=== PATIENT | female | born 1935 | race Caucasian/White ===

== ENCOUNTER 2016-07-03 15:57 | Emergency (ER) | payer MEDICARE, MEDICAID ==
[~2016-07-03] VITALS: Ht 154.9 cm; Wt 59.0 kg
[2016-07-03 16:23] VITALS: BP 156/62
--- NOTE | 2016-07-03 16:43 | Emergency Room Report ---
History of Present Illness General Chief Complaint: Multiple Trauma/Fall Source: Patient Present Illness HPI Patient is a 81-year-old female who presented after increased right-sided chest pain. Patient reported having pain for approximately one week after fall. Patient reportedly fell in a parking lot. She reported having bilateral right knee pain. patient also reported having some pain to the right side of the chest. Pain was worse with movement as well as deep breath. The pain was sharp in nature. The patient states that she's had previous rib fractures. Allergies: Coded Allergies: PENICILLINS (Verified Allergy, Unknown, 07/03/16) Patient History Now: No Reviewed Nursing Documentation: PMH: Agreed, PSxH: Agreed Nursing Documentation-PMH Past Medical History: No Stated History Review of Systems All Other Systems: negative except mentioned in HPI Physical Exam Vital Signs Date Time Temp Pulse Resp B/P Pulse Ox O2 Delivery O2 Flow Rate FiO2 07/03/16 16:06 97.3 80 18 156/62 96 Room Air General Appearance: well appearing, no apparent distress, alert, GCS 15, non- toxic Head: normocephalic, atraumatic ENT: hearing grossly normal, normal voice Neck: full range of motion, supple Respiratory: lungs clear, normal breath sounds, no respiratory distress, speaking full sentences Cardiovascular #1: normal peripheral pulses, regular rate, rhythm, no edema, no gallop Gastrointestinal: normal bowel sounds, non tender, soft, no mass Musculoskeletal: no calf tenderness, decreased range of mation, other - chest wall tenderness right side Neurologic: normal inspection, alert, oriented x3, responsive, 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 Differential diagnosis included but was not limited to acute coronary syndrome, pulmonary embolism, pneumonia, aortic dissection, shingles, pneumothorax, aortic dissection, esophageal rupture , pericarditis. CT imaging of the chest radiologist showed right-sided atelectasis versus pneumonia. Patient was given oral azithromycin. EKG interpreted by me showed normal sinus rhythm with rate of [address] or T wave changes. The patient is advised to follow up with primary care doctor in 1-2 days. Patient is advised to return if any worsening condition or if any changes in status that are concerning. Last Vital Signs Date Time Temp Pulse Resp B/P Pulse Ox O2 Delivery O2 Flow Rate FiO2 07/03/16 16:23 97.3 85 18 156/62 96 Room Air Status: improved Disposition: HOME, SELF-CARE Condition: Stable Scripts Azithromycin* (ZITHROMAX*) 250 Mg Tablet 250 MG ORAL DAILY, #4 TAB Prov: Jose Juan Vilchis 07/03/16 Jose Juan Vilchis Jul 03, 2016 16:43
[2016-07-03 17:04] VITALS: BP 146/61
[2016-07-03 17:44] VITALS: BP 142/59
[2016-07-03] MEDS ORDERED: Azithromycin 250mg tab ORAL ONE (18:30)
[2016-07-03] MEDS ORDERED: AZITHROMYCIN250 MG ORAL (18:35)
[2016-07-03 18:45] VITALS: BP 134/56
--- NOTE | 2016-07-04 10:41 | Diagnostic Imaging Report ---
EXAM: CT Chest HISTORY: Chest pain. TECHNIQUE: Serial 3.0 mm axial images were obtained from the thoracic inlet through the adrenals. Coronal and sagittal reformats were performed. COMPARISON: No prior study is available for comparison. CTDIvol 21 DLP 626 FINDINGS: Lack of intravenous contrast diminishes sensitivity of exam findings. Subsegmental opacity in the right lung base may represent atelectasis or scarring. Reticular densities in the lung bases are compatible with changes of chronic lung disease. No lobar or segmental consolidation. No pleural effusion is seen. The trachea and central airways appears patent. No pneumothorax. The heart is borderline enlarged. There is no evidence of pericardial effusion. There is no evidence of mediastinal, hilar or axillary adenopathy. The thyroid appears unremarkable. Thoracic aorta and great vessels are normal in caliber with scattered atherosclerotic disease. Visualized upper abdominal organs appear grossly normal. The visualized bony structures appear intact. IMPRESSION: Subsegmental atelectasis or scarring in the right lung base with scattered changes of chronic lung disease. No evidence of lobar or segmental pneumonia. Borderline cardiomegaly.
--- NOTE | 2016-07-27 08:14 | Cardiology Report ---
APPROVED REPORT EKG Measurement Heart [id number] OR [id number] [id number] Normal sinus rhythm Cannot rule out Anterior infarct, age undetermined Abnormal ECG
== END 2016-07-03 18:55 | disposition home or self-care (01) ==
LOC: EMR 16:50
DX: J18.9 Pneumonia, unspecified organism (principal); M25.562 Pain in left knee; M25.561 Pain in right knee; Z88.0 Allergy status to penicillin
CPT/HCPCS: 71250; 93005; 99283

== ENCOUNTER 2018-10-05 05:56 | Day surgery (SDC) | payer MEDICARE, MEDICAID ==
[2018-10-05] VITALS (11 sets, daily range): BP systolic 125–151; BP diastolic 56–86
[~2018-10-05] VITALS: Ht 154.9 cm; Wt 59.0 kg
[~2018-10-05 05:56] MED LIST: AZITHROMYCIN250 MG ORAL; BYSTOLIC2.5 MG ORAL; CRESTOR10 M2 ORAL; EDARBI80 MG ORAL; LEVOTHYROXINE75 MCG ORAL; LORAZEPAM0.5 MG ORAL; NORVASC10 MG ORAL; ZENPEP ORAL
--- NOTE | 2018-10-05 06:40 | NUR ---
IV LR WAS STARTED BY CANDICE BACK RN. NO S/S OF INFILTRATION.
[2018-10-05] MEDS ORDERED: fentaNYL 100 mcg/2 mL IV ONE (07:18)
[2018-10-05] MEDS ORDERED: cefOXitin 1gm Inj ONE (07:23)
[2018-10-05] MEDS ORDERED: Sterile Water Irrig 1000ml IRRIG ONE (08:00)
[2018-10-05] MEDS ORDERED: Propofol 200mg/20ml IV ONE (08:00)
[2018-10-05] MEDS ORDERED: LR 1000ml ONE (08:00)
[2018-10-05] MEDS ORDERED: NS Irrig 1000ml ONE (08:00)
--- NOTE | 2018-10-05 08:03 | Pre-Procedure Note/Attestation ---
Pre-Procedure Note/Attestation Complete Prior to Procedure Planned Procedure: not applicable Procedure Narrative: D&C, Hysteroscopy, Endometrial polypectomy Indications for Procedure Pre-Operative Diagnosis: Endometrial Polyps Attestation I attest that I discussed the nature of the procedure; its benefits; risks and complications; and alternatives (and the risks and benefits of such alternatives ), prior to the procedure, with the patient (or the patient's legal sales representative printing). I attest that, if there was a reasonable possibility of needing a blood transfusion, the patient (or the patient's legal sales representative printing) was given the [facility] standardized written summary, pursuant to the Ilya Maryana Blood Safety Act ([place] Health and Safety Code # 1645, as amended). I attest that I re-evaluated the patient just prior to the surgery and that there has been no change in the patient's H&P, except as documented below:NONE Jonathon Johnson MD October 05, 2018 08:03
[2018-10-05] MEDS ORDERED: LR 1000ml 1,000 ML IVLG SCH (08:21)
--- NOTE | 2018-10-05 08:21 | Anethesia Preoperative Eval ---
Anesthesia Pre-op PMH/ROS General Date of Evaluation: October 05, 2018 Time of Evaluation: 07:22 Anesthesiologist: Jass ASA Score: ASA 2 Mallampati Score Class I : Soft palate, uvula, fauces, pillars visible Class II: Soft palate, uvula, fauces visible Class III: Soft palate, base of uvula visible Class IV: Only hard plate visible Mallampati Classification: Class II Surgeon: Elizabeth Diagnosis: Endometrial polyp Surgical Procedure: D&C Hysteroscopy Anesthesia History: none Family History: no anesthesia problems Allergies: Coded Allergies: PENICILLINS (Verified Allergy, Intermediate, 10/04/18) itchy,rashes,red spot on chest TETRACYCLINE (Verified Allergy, Intermediate, 10/04/18) SKIN RASH,ITCHING,RED SPOT ON CHEST Medications: see eMAR Patient NPO?: Yes Past Medical History Cardiovascular: Reports: HTN; Denies: CAD, [place], valve dz, arrhythmia, other Pulmonary: Denies: asthma, COPD, LINA, other Gastrointestinal/Genitourinary: Reports: GERD; Denies: CRI, ESRD, other Neurologic/Psychiatric: Reports: depression/anxiety; Denies: dementia, CVA, TIA, other Endocrine: Reports: hypothyroidism HEENT: Reports: cataract (L), cataract (R); Denies: glaucoma, [employer] (L), [employer] (R), other Hematology/Immune: Denies: anemia, DVT, bleeding disorder, other Musculoskeletal/Integumentary: Reports: OA PMH Narrative: as above PSxH Narrative: Lumpectomy, Appy T@A Skin CA removal Anesthesia Pre-op Phys. Exam Physician Exam Last Vital Signs Date Time Temp Pulse Resp B/P (MAP) Pulse Ox O2 Delivery O2 Flow Rate FiO2 10/05/18 06:36 Room Air 10/05/18 06:35 97.2 60 20 131/56 96 Constitutional: NAD Neurologic: CN 2-12 intact Cardiovascular: RRR, no M/R/G Respiratory: CTA Gastrointestinal: S/NT/ND Airway Exam Mallampati Score: Class III MO: limited Neck: stiff ROM: limited Teeth: missing Dentures: no upper, no lower Anesthesia Pre-op A/P Labs see chart Studies Pre-op Studies: EKG - SR Risk Assessment & Plan Assessment: ASA 2 Plan: GA with LMA Status Change Before Surgery: No Pre-Antibiotics Drug: Cefoxitin 1gr. Given Within 1 Hr of Incision: Yes Time Given: 08:05 Ahmet Regan MD October 05, 2018 08:21
[2018-10-05] MEDS ORDERED: Ketorolac 30mg Inj IV PRN (08:30)
[2018-10-05] MEDS ORDERED: fentaNYL 100 mcg/2 mL IV PRN (08:30)
--- NOTE | 2018-10-05 08:32 | Brief Operative Note ---
Immediate Post Operative Note Operative Note Pre-op Diagnosis: Endometrial Polyps Procedure: D&C, Hysteroscopy, ECC Post-op Diagnosis: Endometrial fluid Findings: consistent w/pre-op dx studies Surgeon: Jonathon Johnson MD Anesthesiologist: Reva Regan MD Anesthesia: general Specimen: yes - ECC, EMC Complications: none Condition: stable Fluids: LR @TKO Estimated Blood Loss: minimal Drains: none Implant(s) used?: No Jonathon Johnson MD October 05, 2018 08:32
--- NOTE | 2018-10-05 08:46 | Immediate Post-Op Evaluation ---
Immediate Post-Op Evalulation Immediate Post-Op Evalulation Procedure: D&C Hysteroscopy Date of Evaluation: October 05, 2018 Time of Evaluation: 08:44 IV Fluids: 400 Blood Products: none Estimated Blood Loss: min Urinary Output: n/a Blood Pressure Systolic: 147 Blood Pressure Diastolic: 63 Pulse Rate: 64 Respiratory Rate: 20 O2 Sat by Pulse Oximetry: 99 Temperature (Fahrenheit): 97.6 Pain Score (1-10): 2 Nausea: No Vomiting: No Complications none Patient Status: reacts, patent, none Hydration Status: adequate Ahmet Regan MD October 05, 2018 08:46
--- NOTE | 2018-10-05 12:34 | 48 Hour Post Anesthesia Eval ---
Post Anesthesia Evaluation Procedure: D&C Hysteroscopy Date of Evaluation: October 05, 2018 Time of Evaluation: 12:33 Blood Pressure Systolic: 138 0: 75 Pulse Rate: 68 Respiratory Rate: 22 Temperature (Fahrenheit): 97.5 O2 Sat by Pulse Oximetry: 98 Airway: patent Nausea: No Vomiting: No Pain Intensity: 2 Hydration Status: adequate Cardiopulmonary Status: stable Mental Status/LOC: patient returned to baseline Follow-up Care/Observations: n/a Post-Anesthesia Complications: none Follow-up care needed: ready to discharge Ahmet Regan MD October 05, 2018 12:34
--- NOTE | 2018-10-05 17:30 | Operative Note - Dictated ---
DATE OF OPERATION: 10/05/2018 PREOPERATIVE DIAGNOSIS: Endometrial thickening, possible endometrial polyps. POSTOPERATIVE DIAGNOSIS: Endometrial fluid collection. No polyps detected. PROCEDURE PERFORMED: Dilatation and curettage, video hysteroscopy, endometrial curettage, and endocervical curettage. SURGEON: Jonathon Johnson M.D. ANESTHESIOLOGIST: Ahmet Regan M.D. ANESTHESIA TYPE: General mask. PROCEDURE IN DETAIL: After all the appropriate consents were signed, the patient was brought to the operating room and placed on table in supine position. General anesthesia was induced without complication. The patient was then placed in a dorsal lithotomy position. Perineum, vagina, and abdomen prepped and draped in the usual fashion for the procedure. The patient was then examined under anesthesia. The patient contained a pessary. The pessary was removed and cleaned and placed for the patient to bring home. At this time, full prep was completed after the pessary was removed. The cervix was visualized and grasped with a single-tooth tenaculum. The cervix was dilated gradually to admit to the hysteroscope. As the cervix was being dilated, some fluid was noted to exit the cavity. At this time, the procedure continued with hysteroscopy, which evaluated the endometrial cavity. There were filmy adhesions inside the cavity representing atrophic connection of the tissue. These were lysed with the hysteroscope and both tubal ostia were finally visualized. The tubes were evaluated and both tubal ostia were within normal limits. The rest of the cavity was within normal limits. There did not appear to be any polyps or submucosal fibroids. At this time, endocervical curettage was performed followed by endometrial curettage. The photographs were taken and the specimen were submitted to pathology for evaluation. The instruments were now removed from the vagina, the cervix was fully hemostatic, and the patient was brought to the recovery room after being awakened from general anesthesia and placed in the supine position. The patient tolerated the procedure very well. Jonathon Johnson M.D. DR: TANVI JOB#: [id number] CC:
[2018-10-05] MEDS ORDERED: Tylenol #3 tab (300mg/30mg) ORAL PRN ×2 (18:05)
[2018-10-05] MEDS ORDERED: D5 1/2NS 1,000 ML IV SCH (18:05)
== END 2018-10-05 10:30 | disposition home or self-care (01) ==
LOC: SUR 05:56
DX: R93.89 Abnormal findings on diagnostic imaging of other specified body structures (principal); N73.6 Female pelvic peritoneal adhesions (postinfective); Z88.0 Allergy status to penicillin; I10 Essential (primary) hypertension; K21.9 Gastro-esophageal reflux disease without esophagitis; F32.9 Major depressive disorder, single episode, unspecified; F41.9 Anxiety disorder, unspecified; E03.9 Hypothyroidism, unspecified; M19.90 Unspecified osteoarthritis, unspecified site; Z85.828 Personal history of other malignant neoplasm of skin
CPT/HCPCS: 58558; 58559; J0694; J1885; J2704; J3010; 94003; 94150

== ENCOUNTER 2019-01-11 16:46 | Emergency (ER) | payer MEDICARE, MEDICAID ==
[~2019-01-11] VITALS: Ht 152.4 cm; Wt 60.3 kg
[2019-01-11 17:00] VITALS: BP 164/63
[2019-01-11] MEDS ORDERED: UNOBMED (17:00)
--- NOTE | 2019-01-11 17:02 | NUR ---
ED Nurse Note: pt walked in to ER with son as reporting pt fell on the street 2 hours ago and cannot move or lift Lt arm. pt c/o pain 10/10 but calm. skin clean and intact. pt denied head trauma. pt is in gown and on [employer]. no acute distress noted at this moment.
--- NOTE | 2019-01-11 17:13 | Emergency Room Report ---
History of Present Illness General Chief Complaint: Upper Extremity Injury Source: Patient Present Illness HPI Patient is an 84-year-old female presents after mechanical fall. Patient was noted to have increased pain to the left shoulder. She denies any loss of consciousness. She reports having mild pain to her neck.Patient is right-hand dominant. Injury occurred approximately 2 hours prior to arrival. Patient is not currently taking any anticoagulation. She denies any injury to her head or neck. Patient tripped and fell. Allergies: Coded Allergies: PENICILLINS (Verified Allergy, Intermediate, 10/04/18) itchy,rashes,red spot on chest TETRACYCLINE (Verified Allergy, Intermediate, 10/04/18) SKIN RASH,ITCHING,RED SPOT ON CHEST Patient History Past Medical History: see triage record Now: No Reviewed Nursing Documentation: PMH: Agreed; PSxH: Agreed Nursing Documentation-PMH Past Medical History: No History, Except For Hx Cardiac Problems: Yes Hx Hypertension: Yes Hx Cancer: Yes - FACIAL SKIN CA REMOVED-2013 Hx Gastrointestinal Problems: Yes Hx Neurological Problems: No Review of Systems All Other Systems: negative except mentioned in HPI Physical Exam Vital Signs Date Time Temp Pulse Resp B/P (MAP) Pulse Ox O2 Delivery O2 Flow Rate FiO2 01/11/19 16:50 97.9 66 15 164/63 (96) 98 Room Air Sp02 EP Interpretation: reviewed, normal General Appearance: normal inspection, alert, no apparent distress, GCS 15 Head: normocephalic, atraumatic Eyes: normal eye exam, PERRL, EOMI, lids + conjunctiva normal, no hyphema, no racoon eyes ENT: normal ENT inspection, oropharynx normal, no stout signs Neck: trach midline, no bony tend, full range of motion without pain Respiratory: effort normal, no retractions, clear to auscultation, chest symmetrical, palpation of chest normal, speaking in full sentences Cardiovascular: regular rate, rhythm, no JVD Cardiovascular #2: 2+ radial (R), 2+ radial (L), 2+ dorsalis pedis (R), 2+ dorsalis pedis (L) Gastrointestinal: normal inspection, non-tender, non-distended, no rebound/ guarding, normal bowel sounds Musculoskeletal: normal ROM, non-tender, back normal Skin: no rash, no lacerations, normal palpation Lymphatic: normal inspection Neurologic: oriented x3, sensory intact, motor strength/tone normal, normal speech Psychiatric: normal inspection, memory normal, mood normal, no suicidal/ homicidal ideation Medical Decision Making Diagnostic Impression: Primary Impression: Fall Additional Impressions: Proximal humerus fracture Knee contusion ER Course Patient presented for a fall. Differential diagnosis include was not limited to fracture, contusion, dislocation among others. Because of complexity of patient's case imaging studies were ordered. Patient was noted to have what appears to be a mechanical fall. She does not show any signs of acute head injury or neck injury. Patient is not currently taking any anticoagulation. X- ray imaging of the left shoulders 3 view interpreted by me showed normal bony alignment with a minimally displaced fracture of the proximal humeral head. Patient appears to be neurovascularly intact distally. X-ray imaging of the right knee 3 views interpreted by me normal bony alignment without an fracture. Patient was placed in a sling. She is advised to follow-up with orthopedics. She was given [place] for pain.Patient appears to be stable for discharge. Last Vital Signs Date Time Temp Pulse Resp B/P (MAP) Pulse Ox O2 Delivery O2 Flow Rate FiO2 01/11/19 17:00 97.9 66 15 164/63 98 Room Air Status: improved Disposition: HOME, SELF-CARE Condition: Stable Jose Juan Vilchis MD Jan 11, 2019 17:13
[2019-01-11] MEDS ORDERED: HYDROcodone/Acetamin 5/325 tab ORAL ONE (17:15)
--- NOTE | 2019-01-11 17:17 | NUR ---
ED Nurse Note: called x-ray tech.
--- NOTE | 2019-01-11 17:25 | NUR ---
ED Nurse Note: x-ray at bedside.
[2019-01-11] MEDS ORDERED: COLACE100 MG ORAL (17:49)
[2019-01-11] MEDS ORDERED: IBUPROFEN400 M1 PO (17:49)
[2019-01-11] MEDS ORDERED: NORCO 5-325 TA1 EACH ORAL (17:49)
--- NOTE | 2019-01-11 17:51 | NUR ---
ED Nurse Note: sling applied on Lt arm.
[2019-01-11 18:00] VITALS: BP 154/74
--- NOTE | 2019-01-11 18:00 | NUR ---
ER DISCHARGE NOTE: Patient is cleared to be discharged per ERMD after sling was applied on Lt shoulder, pt is aox4, accompanied by a son, on room air, with stable vital signs. pt was given dc and prescription instructions, pt was able to verbalize understanding, pt id band removed. pt is able to ambulate with steady gait. pt took all belongings.
--- NOTE | 2019-01-12 12:26 | Diagnostic Imaging Report ---
. Indication: Shoulder pain, status post fall Technique: 3 views of the left shoulder Comparison: none Findings: There is a comminuted nondisplaced fracture of the left humeral head and neck. No dislocation Impression: Positive for left shoulder fracture. This agrees with the preliminary interpretation reported by the emergency room physician in the electronic medical record
--- NOTE | 2019-01-12 14:43 | Diagnostic Imaging Report ---
Indication: Right knee pain, status post fall Technique: 3 views of the right knee Comparison: None Findings: No acute fractures. No dislocations. The joint spaces are preserved. Impression: Negative
== END 2019-01-11 18:00 | disposition home or self-care (01) ==
LOC: EMR 17:15
DX: S42.202A Unspecified fracture of upper end of left humerus, initial encounter for closed fracture (principal); S80.01XA Contusion of right knee, initial encounter; Z88.0 Allergy status to penicillin; Z88.1 Allergy status to other antibiotic agents; I10 Essential (primary) hypertension; Z85.828 Personal history of other malignant neoplasm of skin; W01.0XXA Fall on same level from slipping, tripping and stumbling without subsequent striking against object, initial encounter; Y92.9 Unspecified place or not applicable
CPT/HCPCS: 99284